=== PATIENT | male | born 1995 | race Two or more races ===

== ENCOUNTER 2021-09-03 16:18 | Emergency (ER) | payer OTHER ==
[2021-09-03] MEDS ORDERED: CEPHALEXIN500 MG PO (19:30)
== END 2021-09-03 19:48 | disposition home or self-care (01) ==
LOC: FER 16:18
DX: S61.411A Laceration without foreign body of right hand, initial encounter (principal); W45.8XXA Other foreign body or object entering through skin, initial encounter; Y92.89 Other specified places as the place of occurrence of the external cause; Y99.0 Civilian activity done for income or pay
CPT/HCPCS: 73130

== ENCOUNTER 2021-09-13 14:26 | Emergency (ER) | payer OTHER ==
[~2021-09-13 14:26] MED LIST: CEPHALEXIN500 MG PO
== END 2021-09-13 17:19 | disposition home or self-care (01) ==
LOC: FER 14:26
DX: S61.411D Laceration without foreign body of right hand, subsequent encounter (principal); W45.8XXD Other foreign body or object entering through skin, subsequent encounter
CPT/HCPCS: 99281